=== PATIENT | female | born 1975 | race Caucasian/White ===

== ENCOUNTER 2024-01-07 16:18 | Emergency (ER) | payer OTHER ==
[~2024-01-07] VITALS: Ht 157.5 cm; Wt 78.0 kg
[~2024-01-07 16:18] MED LIST: ATORVASTATIN CA40 MG PO; BUSPAR10 MG PO; D31000 UNIT PO; DESYREL50 MG PO; DILAUDID2 MG PO; INDERAL 20MG TA20 MG PO; LAMOTRIGINE ER50 MG PO; LYRICA50 MG PO; NOVOLIN R100 UNIT/1 SC; OMEPRAZOLE DR40 MG PO; PRAZOSIN HCL5 MG PO; SINGULAIR10 MG PO; TIZANIDINE4 MG PO; TOPAMAX25 MG PO; VISTARIL 50MG C50 M1 PO; ZOLOFT50 MG PO
[2024-01-07 16:31] VITALS: BP 117/76
[2024-01-07 17:01] LABS: BASO% 0.5 % (0-3); EOS% 2.1 % (0-8); IMMATURE GRANULOCYTES 0.1 % (0.0-5.0); MEAN CELL VOLUME 94.4 fL CALC (80.0-100.0); MEAN CORPUSCULAR HGB 31.5 pG CALC (26.0-32.0); MEAN CORPUSCULAR HGB CONC 33.3 g/dL CAL (32.0-36.0); MONO% 5.4 % (2-13); NEUT# 4.26 thou/uL (2.00-7.15); NEUT% 54.9 % (42-76); RED BLOOD COUNT 4.13 mill/uL (4.20-5.60); RED CELL DISTRI WIDTH 11.7 % (11.5-15.5)
[2024-01-07] MEDS ORDERED: PROMETHAZINE HCL 25 MG/ML AMP IM ONE (17:10)
[2024-01-07 17:17] LABS: BILIRUBIN, TOTAL 0.3 mg/dL (0.02-1.3); CREATININE 0.6 mg/dL (0.5-1.0); TOTAL PROTEIN 7.6 g/dL (6.3-8.2)
[2024-01-07] MEDS ORDERED: SODIUM CHLORIDE 0.9% 1,000 ML IV ONE (19:45)
[2024-01-07] MEDS ORDERED: DEXTROSE 10% 500 ML BAG IV ONE (20:45)
[2024-01-07 22:00] VITALS: BP 110/60
[2024-01-07 22:16] LABS: URINE BILIRUBIN - DIPSTICK Negative (NEGATIVE); URINE BLOOD DIPSTICK Moderate (NEGATIVE); URINE GLUCOSE - DIPSTICK 500 mg/dL (NEGATIVE); URINE KETONE Negative (NEGATIVE); URINE LEUK ESTERASE Trace (NEGATIVE); URINE NITRITE - DIPSTICK Negative (Negative); URINE PH 5.5 (4.5-8.0); URINE PROTEIN - DIPSTICK Negative (NEG-TRACE); URINE SPECIFIC GRAVITY <=1.005; URINE UROBILINOGEN - DIPSTICK 0.2 E.U./dL (0.2)
[2024-01-07 22:21] LABS: URINE COLOR Yellow
[2024-01-07 22:25] LABS: URINE SQUAMOUS EPITHELIAL CELL FEW EPI/hpf (0-FEW)
[2024-01-07 22:26] LABS: URINE BACTERIA RARE hpf
[2024-01-08] MEDS ORDERED: OMNICEF300 MG PO (18:35)
== END 2024-01-07 23:01 | disposition home or self-care (01) | DRG 761 ==
LOC: ED 16:18
PROVIDERS: Family Medicine
DX: N93.9 Abnormal uterine and vaginal bleeding, unspecified (principal); E11.9 Type 2 diabetes mellitus without complications; M79.7 Fibromyalgia; F31.9 Bipolar disorder, unspecified; F41.1 Generalized anxiety disorder; Z79.4 Long term (current) use of insulin; R82.71 Bacteriuria
CPT/HCPCS: Q9967

== ENCOUNTER 2024-01-08 17:10 | Emergency (ER) | payer OTHER ==
[2024-01-08] VITALS (11 sets, daily range): BP systolic 124–147; BP diastolic 73–102
[~2024-01-08] VITALS: Ht 160 cm; Wt 78.5 kg
[2024-01-08] MEDS ORDERED: SODIUM CHLORIDE 0.9% 1,000 ML IV ONE (17:30)
[2024-01-08] MEDS ORDERED: KETOROLAC TROMETHAMINE 30 MG/ML SDV IV ONE (17:30)
[2024-01-08 18:06] LABS: BASO% 0.5 % (0-3); EOS% 1.6 % (0-8); HEMOGLOBIN 12.9 g/dl (12.0-16.0); IMMATURE GRANULOCYTES 0.5 % (0.0-5.0); LYMPH% 37.4 % (15-41); MEAN CELL VOLUME 93.6 fL CALC (80.0-100.0); MEAN CORPUSCULAR HGB 31.8 pG CALC (26.0-32.0); MEAN CORPUSCULAR HGB CONC 33.9 g/dL CAL (32.0-36.0); MONO% 4.8 % (2-13); NEUT# 4.76 thou/uL (2.00-7.15); NEUT% 55.2 % (42-76); RED BLOOD COUNT 4.06 mill/uL (4.20-5.60); RED CELL DISTRI WIDTH 11.8 % (11.5-15.5); URINE BILIRUBIN - DIPSTICK Negative (NEGATIVE); URINE BLOOD DIPSTICK Moderate (NEGATIVE); URINE GLUCOSE - DIPSTICK Negative (NEGATIVE); URINE KETONE Negative (NEGATIVE); URINE NITRITE - DIPSTICK Negative (Negative); URINE PH 5.5 (4.5-8.0); URINE PROTEIN - DIPSTICK Negative (NEG-TRACE); URINE SPECIFIC GRAVITY >=1.030; URINE UROBILINOGEN - DIPSTICK 0.2 E.U./dL (0.2)
[2024-01-08 18:08] LABS: URINE COLOR Yellow; URINE LEUK ESTERASE Moderate (NEGATIVE)
[2024-01-08 18:13] LABS: URINE WBC 50-100 WBC/hpf (0-5)
[2024-01-08 18:14] LABS: ALBUMIN 4.1 g/dL (3.2-5.0); BILIRUBIN, TOTAL 0.3 mg/dL (0.02-1.3); CREATININE 0.6 mg/dL (0.5-1.0); POTASSIUM 3.8 mmol/l (3.5-5.1); TOTAL PROTEIN 7.8 g/dL (6.3-8.2); URINE SQUAMOUS EPITHELIAL CELL FEW EPI/hpf (0-FEW)
[2024-01-08] MEDS ORDERED: LIDOcaine HCl 1% (Local Anesth.) 20 ML VIAL IM STA (18:31)
[2024-01-08] MEDS ORDERED: cefTRIAXone SODIUM 2 GM/VIAL SDV IM ONE (18:35)
[2024-01-08] MEDS ORDERED: MORPHINE SULFATE 4 MG/ML VIAL IV ONE (18:35)
[2024-01-08] MEDS ORDERED: OMNICEF300 MG PO (18:35)
[2024-01-08] MEDS ORDERED: PROMETHAZINE HCL 25 MG/ML AMP IM ONE (18:35)
== END 2024-01-08 19:46 | disposition home or self-care (01) | DRG 690 ==
LOC: ED 17:10
PROVIDERS: Family Medicine
DX: N39.0 Urinary tract infection, site not specified (principal); R31.9 Hematuria, unspecified; E11.9 Type 2 diabetes mellitus without complications; F41.1 Generalized anxiety disorder; F31.9 Bipolar disorder, unspecified; Z79.4 Long term (current) use of insulin

== ENCOUNTER 2024-02-02 15:33 | Observation (INO) | payer OTHER ==
[2024-02-02] VITALS (24 sets, daily range): BP systolic 97–150; BP diastolic 52–86
[~2024-02-02] VITALS: Ht 160 cm; Wt 86.4 kg
[~2024-02-02 15:33] MED LIST changes: +OMNICEF300 MG PO
--- NOTE | 2024-02-02 15:34 | NUR ---
PT BROUGHT BACK TO ER ROOM 1 VIA EMS
[2024-02-02] MEDS ORDERED: ASPIRIN 81 MG/TAB PO ONE (15:35)
[2024-02-02] MEDS ORDERED: NITROGLYCERIN 0.4 MG/TAB SL ONE (15:45)
--- NOTE | 2024-02-02 16:20 | NUR ---
PER PT CHEST PAIN IS THE SAME, NO RELEIF AFTER THE NITRO
[2024-02-02] MEDS ORDERED: METOPROLOL TARTRATE 5 MG/5 ML VIAL IV ONE (16:55)
[2024-02-02] MEDS ORDERED: PROMETHAZINE HCL 25 MG/ML AMP IV ONE (17:00)
[2024-02-02 17:10] LABS: BASO% 0.2 % (0-3); EOS% 0.3 % (0-8); HEMATOCRIT 37.7 % (37.0-47.0); HEMOGLOBIN 12.8 g/dl (12.0-16.0); IMMATURE GRANULOCYTES 0.1 % (0.0-5.0); LYMPH% 12.6 % (15-41); MEAN CORPUSCULAR HGB 31.2 pG CALC (26.0-32.0); MONO% 4.2 % (2-13); NEUT# 7.68 thou/uL (2.00-7.15); NEUT% 82.6 % (42-76); RED BLOOD COUNT 4.1 mill/uL (4.20-5.60); RED CELL DISTRI WIDTH 11.9 % (11.5-15.5)
--- NOTE | 2024-02-02 17:15 | NUR ---
PT MEDICATED PER EMAR FOR NAUSEA AND RAPID HR, PT RESTING IN BED, DENIES ANY NEEDS
[2024-02-02 17:20] LABS: ALBUMIN 4.2 g/dL (3.2-5.0); ALKALINE PHOSPHATASE 80 u/l (38-126); ANION GAP 10 (6-22 (CALC)); BUN 10 mg/dL (7-17); BUN/CREATININE RATIO 17 (12-20 (CALC)); CARBON DIOXIDE 26 mmol/l (22-30); CHLORIDE 106 mmol/l (95-108); CREATININE 0.6 mg/dL (0.5-1.0); ESTIMATED GFR 112 ML/MIN (>=90 (CALC)); LIPASE 41 u/l (23-300); POTASSIUM 4.2 mmol/l (3.5-5.1); SGOT/AST 21 u/l (14-36); SODIUM 137 mmol/l (137-146); TOTAL PROTEIN 7.6 g/dL (6.3-8.2)
[2024-02-02 17:32] LABS: BILIRUBIN, TOTAL 0.6 mg/dL (0.02-1.3)
--- NOTE | 2024-02-02 18:15 | NUR ---
PT RESTING IN BED, PER PT THE PAIN IS BACK TO A 9/10, VSS, PROVIDER NOTIFIED
--- NOTE | 2024-02-02 19:05 | NUR ---
REPORT RECEIVED FROM OFF GOING RN PT RESTING IN BED WAKE, VSS, CALL ALFONSO WITHIN REACH
[2024-02-02] MEDS ORDERED: MORPHINE SULFATE 4 MG/ML VIAL IV ONE (19:15)
[2024-02-02] MEDS ORDERED: ACETAMINOPHEN 325 MG/TAB PO ONE (19:15)
[2024-02-02] MEDS ORDERED: METOCLOPRAMIDE HCL 10 MG/2 ML SDV IV ONE (19:35)
--- NOTE | 2024-02-02 20:00 | NUR ---
PT RESTING IN BED, MEDICATIONS EFFECTIVE, VSS, CALL ALFONSO IN PLACE
[2024-02-02] MEDS ORDERED: MAGNESIUM HYDROXIDE 30 ML UDC PO PRN (20:15)
[2024-02-02] MEDS ORDERED: Zaleplon 5 MG/CAP PO PRN (20:15)
[2024-02-02] MEDS ORDERED: ENOXAPARIN SODIUM 40 MG/0.4 ML SYR SC SCH (21:00)
--- NOTE | 2024-02-02 21:25 | NUR ---
REPORT TO [facility] NURSE RM [id number]
[2024-02-02] MEDS ORDERED: PREGABALIN50 MG (21:55)
[2024-02-02] MEDS ORDERED: TOPIRAMATE25 MG PO (22:45)
[2024-02-02] MEDS ORDERED: ATORVASTATIN CALCIUM 40 MG/TAB PO SCH (22:46)
[2024-02-02] MEDS ORDERED: traZODone HCL 50 MG/TAB PO SCH (22:47)
[2024-02-02] MEDS ORDERED: MONTELUKAST SODIUM 10 MG/TAB PO SCH (22:47)
[2024-02-02] MEDS ORDERED: hydrOXYzine HCL 25 MG/TAB PO SCH (22:48)
[2024-02-02] MEDS ORDERED: ASPIRIN ADULT L81 M2 (22:49)
[2024-02-02] MEDS ORDERED: PREGABALIN 50 MG/CAP PO SCH (22:49)
[2024-02-02] MEDS ORDERED: CYCLOBENZAPRINE HCL 5 MG TAB PO PRN (22:50)
[2024-02-02] MEDS ORDERED: [UNRECOGNIZED DRUG - REMARK] PO PRN (22:50)
[2024-02-02] MEDS ORDERED: lamoTRIgine 100 MG/TAB PO SCH (22:52)
[2024-02-02] MEDS ORDERED: [UNRECOGNIZED DRUG - REMARK] PO PRN (22:55)
[2024-02-02] MEDS ORDERED: TOPIRAMATE 25 MG TAB PO SCH (22:55)
[2024-02-02] MEDS ORDERED: ARIPiprazole 10 MG/TAB PO SCH (22:59)
[2024-02-02] MEDS ORDERED: HYDROmorphone HCL 2 MG/TAB PO PRN (23:05)
[2024-02-02] MEDS ORDERED: SERTRALINE HCL 50 MG/TAB PO SCH (23:05)
[2024-02-03] VITALS (8 sets, daily range): BP systolic 101–127; BP diastolic 61–79
--- NOTE | 2024-02-03 | NUR ---
RECEIVED REPORT FROM ED NURSE, PATIENT ARRIVED MS ORO T 2142, TRANSPORTED VIA WHEELCHAIR, NIECYNET ALERT ORIENTED, SALINE LOCK LAC PATENT FLUSHES WELL, HOOKED ON TELEMETRY, ADMISSION ASSESSMENT COMPLETED DENIES CHEST DISCOMFORTS AT THIS TIME,ANDRES ORINETED TO ROOMAND CALL LIGHT SYSTEM, CALL LIGHT IN REACHED.
--- NOTE | 2024-02-03 04:14 | NUR ---
ANDRES RESTING IN BED, EYES CLOSED, BREATHING EVEN UNLABORED CALL LIGHT IN REACHED,
[2024-02-03] MEDS ORDERED: PROMETHAZINE HCL 25 MG/ML AMP IV SCH (06:20)
[2024-02-03 06:33] LABS: CHOLESTEROL HDL RATIO 4.4 (<4.4 (CALC)); MAGNESIUM 1.5 mg/dL (1.6-2.3)
--- NOTE | 2024-02-03 06:36 | NUR ---
Asked pt if I can get Glucose @0600. Pt stated she has an inslulin pump and to not poke her. Notified Daniel Olivia @0605. Nurse said it was ok to use pump reading which was 113.
--- NOTE | 2024-02-03 08:06 | NUR ---
BEDSIDE REPORT RECEIVED FROMOFF GOING NURSE. PATIENT ASLEEP IN BED. AORUSABLE BUT DROWSY. RESPIRATIONS EVEN AND UNLABORED ON ROOM AIR. C/O CHEST PAIN AND "FULLNESS IN MY HEAD". PATIENT STATES THAT THIS FEELING IS NOT NEW. PATIENT STATES THAT CHEST PAIN DOES NOT RADIATE AND HAS NOT WORSENED SINCE ADMISSION. NO FURTHER COMPLAINTS VOICED. PATIENT MADE AWARE THAT THE DOCOT IS ROUNDING AND WILL SEE HER THIS MORNING. SAFETY MEASURES INPLACE. CALL LIGHT WITHIN REACH.
[2024-02-03] MEDS ORDERED: PROPRANOLOL HCL 20 MG/TAB PO SCH (09:00)
[2024-02-03] MEDS ORDERED: ASPIRIN 81 MG/TAB PO SCH (09:00)
[2024-02-03] MEDS ORDERED: DEXTROSE 250 ML IV PRN (10:20)
[2024-02-03] MEDS ORDERED: AZITHROMYCIN 500 MG in SODIUM CHLORIDE 0.9% 250 ML IV SCH (11:00)
[2024-02-03] MEDS ORDERED: INSULIN LISPRO 100 UNITS/ML ML SC SCH (11:00)
--- NOTE | 2024-02-03 11:21 | NUR ---
PATIENT ASLEEP IN BED AT THIS TIME. RESPIRATIONS EVEN AND UNLABORED ON ROOM AIR. PATIENT EASILY AROUSED BUT CONTINUES TO BE SLEEPY WHEN NOT AROUSED. DENIES PAIN OR DISCOMFORT. MEDICATION EDUATION COMPLETE FOR IV ABT. SAFETY MEASURES INPLACE. CALL LIGHT WITHIN REACH.
--- NOTE | 2024-02-03 14:09 | NUR ---
PATIENT ASLEEP IN BED AT THIS TIME. RESPIRATIONS EVEN AND UNLABORED ON ROOM AIR. NO SIGNS OF DISTRESS NOTED. CALL LIGHT WITHIN REACH.
--- NOTE | 2024-02-03 18:36 | NUR ---
PATIENT RESTING IN BED AT THIS TIME. NO SIGNS OF DISTRESS NOTED. CALL LIGHT WITHIN REACH.
--- NOTE | 2024-02-03 20:00 | NUR ---
RECEIVED REPORT FROM NURSE ACEVEDO, PATIENT RESTING IN BED, PATIENT TALKING ON THE PHONE, APTINET NOT IN DISTRESS. PATIENT SALINE LOCK NOTED ON LAC PATENT FLUSHES WELL, ON TELEMETRY PATIENT HAS AN GLUCOSE MONITOR AND INSULIN PUMP REFUSED TO GET BLOOD SUGAR CHECKED, HER GLUCOSE MONITOR SHOWS 232, PATIENT C/O DRY COUGH, AND FEELS NASAL CONGESTION. NURSE PRACTIONER MADE AWARE WITH ORDERS MADE.
[2024-02-03] MEDS ORDERED: IPRATROPIUM-Albuterol 0.5MG-2.5MG/3 ML NEB PRN (20:30)
[2024-02-03] MEDS ORDERED: PROMETHAZINE HCL 25 MG/ML AMP IV PRN (20:30)
[2024-02-03] MEDS ORDERED: SERTRALINE HCL 50 MG/TAB PO SCH (21:00)
[2024-02-03] MEDS ORDERED: GUAIFENESIN 600 MG/TAB PO SCH (21:00)
[2024-02-03] MEDS ORDERED: TOPIRAMATE 25 MG TAB PO SCH (21:00)
--- NOTE | 2024-02-03 22:15 | NUR ---
AT 2141, PATIENT C/O PAIN SHARP RADIATES ON LEFT LATERAL NECK. V/S OBTAINED BP 112/79 HR 88 SPO2 AT 93% TEMP 98.1, STAT EKG OBTAINED AND STAT TROPONIN, ON JENIFFER NURSE PRACTITIONER MADE AWARE. BS AT 98 AT THIUS TIME, GETTING SNACK
--- NOTE | 2024-02-03 22:20 | NUR ---
ANDRES STATED FEELS MUCH BETTER, CP EASING UP, TROPONINS OBTAINED.
--- NOTE | 2024-02-04 | NUR ---
PATINET RESTING IN BED,NOT IN DISTRESS, BRAETHING EVEN UNLABORED CALL LIGHT IN REACHED.
[2024-02-04 03:41] VITALS: BP 127/80
--- NOTE | 2024-02-04 04:28 | NUR ---
PATIENT RESTING IN BED, EYES CLSOED, BREATHING EVEN UNLABORED CALL LIGHT IN REACHED.
[2024-02-04 06:16] LABS: BASO% 0.5 % (0-3); EOS% 0.7 % (0-8); HEMOGLOBIN 11.8 g/dl (12.0-16.0); IMMATURE GRANULOCYTES 0.1 % (0.0-5.0); LYMPH% 24.6 % (15-41); MEAN CELL VOLUME 94.3 fL CALC (80.0-100.0); MEAN CORPUSCULAR HGB 31.8 pG CALC (26.0-32.0); MEAN CORPUSCULAR HGB CONC 33.7 g/dL CAL (32.0-36.0); MONO% 7.8 % (2-13); NEUT# 5.6 thou/uL (2.00-7.15); NEUT% 66.3 % (42-76); RED BLOOD COUNT 3.71 mill/uL (4.20-5.60); RED CELL DISTRI WIDTH 11.9 % (11.5-15.5)
[2024-02-04 06:34] LABS: ALBUMIN 3.7 g/dL (3.2-5.0); BILIRUBIN, TOTAL 0.6 mg/dL (0.02-1.3); CREATININE 0.6 mg/dL (0.5-1.0); MAGNESIUM 1.8 mg/dL (1.6-2.3); POTASSIUM 3.8 mmol/l (3.5-5.1); TOTAL PROTEIN 6.5 g/dL (6.3-8.2)
[2024-02-04 07:19] VITALS: BP 129/73
[2024-02-04] MEDS ORDERED: DOXYCYCLINE100 MG PO (10:24)
[2024-02-04] MEDS ORDERED: PREDNISONE20 MG PO (10:24)
[2024-02-04 11:09] VITALS: BP 125/66
--- NOTE | 2024-02-08 11:09 | NUR ---
Discharge follow up piero completed 02/08/24. Pt states she is still sick and now has bronchial pneumonia. Pt is taking antibiotics prescribed at discharge. She saw her PCP yesterday and will see him again after completing antibiotics. No needs or questions verbalized by patient at this time..
== END 2024-02-04 12:57 | disposition home or self-care (01) | DRG 202 ==
LOC: ED 15:33 → ED-I 16:07 → ED 19:59 → MS2 20:00
PROVIDERS: Nurse Practitioner; Nurse Practitioner Family; ADMIT Internal Medicine; ATTEND Internal Medicine
DX: J20.9 Acute bronchitis, unspecified (principal); J44.0 Chronic obstructive pulmonary disease with (acute) lower respiratory infection; U09.9 Post COVID-19 condition, unspecified; I10 Essential (primary) hypertension; E11.9 Type 2 diabetes mellitus without complications; I48.0 Paroxysmal atrial fibrillation; E78.5 Hyperlipidemia, unspecified; F41.1 Generalized anxiety disorder; F31.9 Bipolar disorder, unspecified; Z79.4 Long term (current) use of insulin; Z88.8 Allergy status to other drugs, medicaments and biological substances; Z96.41 Presence of insulin pump (external) (internal); Z20.822 Contact with and (suspected) exposure to COVID-19
CPT/HCPCS: G0378; J1650

== ENCOUNTER 2024-02-14 17:06 | Emergency (ER) | payer OTHER ==
[2024-02-14] VITALS (15 sets, daily range): BP systolic 117–144; BP diastolic 48–77
[~2024-02-14] VITALS: Ht 160 cm; Wt 77.1 kg
[~2024-02-14 17:06] MED LIST changes: +ASPIRIN ADULT L81 M2; +DOXYCYCLINE100 MG PO; +PREDNISONE20 MG PO; +PREGABALIN50 MG; +TOPIRAMATE25 MG PO
[2024-02-14] MEDS ORDERED: PROMETHAZINE HCL 25 MG/ML AMP IM ONE (17:30)
[2024-02-14] MEDS ORDERED: SODIUM CHLORIDE 0.9% 1,000 ML IV ONE ×2 (17:30)
[2024-02-14 17:53] LABS: BASO% 0.3 % (0-3); EOS% 1.8 % (0-8); HEMATOCRIT 35.2 % (37.0-47.0); HEMOGLOBIN 11.6 g/dl (12.0-16.0); IMMATURE GRANULOCYTES 0.2 % (0.0-5.0); LYMPH% 35.5 % (15-41); MEAN CELL VOLUME 93.6 fL CALC (80.0-100.0); MEAN CORPUSCULAR HGB 30.9 pG CALC (26.0-32.0); MONO% 5.1 % (2-13); NEUT# 5.53 thou/uL (2.00-7.15); NEUT% 57.1 % (42-76); RED BLOOD COUNT 3.76 mill/uL (4.20-5.60)
[2024-02-14 18:06] LABS: ALBUMIN 3.8 g/dL (3.2-5.0); BILIRUBIN, TOTAL 0.4 mg/dL (0.02-1.3); CREATININE 0.6 mg/dL (0.5-1.0); TOTAL PROTEIN 6.8 g/dL (6.3-8.2)
[2024-02-14] MEDS ORDERED: ASPIRIN 81 MG/TAB PO ONE (18:55)
== END 2024-02-14 21:00 | disposition home or self-care (01) | DRG 313 ==
LOC: ED 17:06
PROVIDERS: Family Medicine
DX: R07.9 Chest pain, unspecified (principal); E11.9 Type 2 diabetes mellitus without complications; I10 Essential (primary) hypertension; E78.5 Hyperlipidemia, unspecified; F41.1 Generalized anxiety disorder; F31.9 Bipolar disorder, unspecified; M79.7 Fibromyalgia; Z79.4 Long term (current) use of insulin

== ENCOUNTER 2024-03-03 15:26 | Emergency (ER) | payer OTHER ==
[~2024-03-03] VITALS: Ht 160 cm; Wt 83.0 kg
[2024-03-03] MEDS ORDERED: DiphenhydrAMINE HCL 50 MG/ML SDV IV ONE (15:35)
[2024-03-03] MEDS ORDERED: SODIUM CHLORIDE 0.45% 1,000 ML IV ONE (15:35)
[2024-03-03] MEDS ORDERED: METOCLOPRAMIDE HCL 10 MG/2 ML SDV IV ONE (15:35)
[2024-03-03] MEDS ORDERED: DEXAMETHASONE SOD. PHOSPHATE 10 MG/ML VIAL IV ONE (15:35)
[2024-03-03] MEDS ORDERED: ALBUTEROL SULFATE 2.5 MG VIAL IN ONE (15:35)
[2024-03-03] MEDS ORDERED: DECADRON4 MG PO (15:45)
[2024-03-03] MEDS ORDERED: EPIPEN 2-P0.3 MG/0.3 IM (15:45)
[2024-03-03] MEDS ORDERED: REGLAN10 MG PO (15:46)
[2024-03-03 16:44] VITALS: BP 109/68
== END 2024-03-03 17:00 | disposition home or self-care (01) | DRG 918 ==
LOC: ED 15:26
DX: T63.461A Toxic effect of venom of wasps, accidental (unintentional), initial encounter (principal); T78.2XXA Anaphylactic shock, unspecified, initial encounter; E11.9 Type 2 diabetes mellitus without complications; X58.XXXA Exposure to other specified factors, initial encounter

== ENCOUNTER 2024-04-03 20:20 | Emergency (ER) | payer OTHER ==
[~2024-04-03] VITALS: Ht 160 cm; Wt 73.0 kg
[~2024-04-03 20:20] MED LIST changes: +DECADRON4 MG PO; +EPIPEN 2-P0.3 MG/0.3 IM; +REGLAN10 MG PO
[2024-04-03] MEDS ORDERED: FAMOTIDINE 10MG/ML 2ML SDV IV STA (20:26)
[2024-04-03] MEDS ORDERED: methylPREDNISolone SODIUM SUCC 125 MG/2 ML SDV IV STA (20:26)
[2024-04-03] MEDS ORDERED: DiphenhydrAMINE HCL 50 MG/ML SDV IV STA (20:26)
[2024-04-03 20:28] VITALS: BP 149/74
[2024-04-03 20:31] VITALS: BP 133/73
[2024-04-03] MEDS ORDERED: DiphenhydrAMINE HCL 25 MG CPLT PO ONE (20:35)
[2024-04-03 20:46] VITALS: BP 128/65
[2024-04-03 21:00] VITALS: BP 149/76
[2024-04-03 21:18] VITALS: BP 159/71
[2024-04-03] MEDS ORDERED: predniSONE 20 MG/TAB PO ONE (21:20)
[2024-04-03] MEDS ORDERED: PREDNISONE50 MG PO (21:21)
[2024-04-03] MEDS ORDERED: EPIPEN 2-P0.3 MG/0.3 SC (21:21)
[2024-04-03 21:35] VITALS: BP 159/71
== END 2024-04-03 21:35 | disposition home or self-care (01) | DRG 918 ==
LOC: ED 20:20
DX: T63.461A Toxic effect of venom of wasps, accidental (unintentional), initial encounter (principal); E11.9 Type 2 diabetes mellitus without complications; I10 Essential (primary) hypertension; E78.00 Pure hypercholesterolemia, unspecified; F41.1 Generalized anxiety disorder; F31.9 Bipolar disorder, unspecified; Z79.4 Long term (current) use of insulin

== ENCOUNTER 2024-04-18 08:51 | Observation (INO) | payer OTHER ==
[~2024-04-18] VITALS: Ht 160 cm; Wt 66.6 kg
[2024-04-18] VITALS (33 sets, daily range): BP systolic 84–153; BP diastolic 42–89
[~2024-04-18 08:51] MED LIST changes: +EPIPEN 2-P0.3 MG/0.3 SC; +PREDNISONE50 MG PO
[2024-04-18 09:24] LABS: BASO% 0.2 % (0-3); EOS% 1.9 % (0-8); HEMATOCRIT 39.6 % (37.0-47.0); HEMOGLOBIN 12.8 g/dl (12.0-16.0); IMMATURE GRANULOCYTES 0.1 % (0.0-5.0); LYMPH% 34.1 % (15-41); MEAN CELL VOLUME 96.1 fL CALC (80.0-100.0); MEAN CORPUSCULAR HGB 31.1 pG CALC (26.0-32.0); MEAN CORPUSCULAR HGB CONC 32.3 g/dL CAL (32.0-36.0); MONO% 4.4 % (2-13); NEUT# 4.9 thou/uL (2.00-7.15); NEUT% 59.3 % (42-76); RED BLOOD COUNT 4.12 mill/uL (4.20-5.60); RED CELL DISTRI WIDTH 12.6 % (11.5-15.5)
[2024-04-18 09:36] LABS: PROTHROMBIN TIME 9.9 SECONDS (9.0-12.5)
[2024-04-18 09:37] LABS: ALBUMIN 4.1 g/dL (3.2-5.0); ALKALINE PHOSPHATASE 91 u/l (38-126); ANION GAP 7 (6-22 (CALC)); BUN 15 mg/dL (7-17); BUN/CREATININE RATIO 29 (12-20 (CALC)); CALCULATED LDLCHOLESTEROL 93 mg/dL (62-129 (CALC)); CARBON DIOXIDE 27 mmol/l (22-30); CHLORIDE 106 mmol/l (95-108); CHOLESTEROL HDL RATIO 3.6 (<4.4 (CALC)); CREATININE 0.5 mg/dL (0.5-1.0); ESTIMATED GFR 117 ML/MIN (>=90 (CALC)); HDL CHOLESTEROL 63 mg/dL (39.0-59.0); POTASSIUM 4.6 mmol/l (3.5-5.1); SGOT/AST 23 u/l (14-36); SODIUM 135 mmol/l (137-146); TOTAL CHOLESTEROL 224 mg/dl (0-199); TOTAL PROTEIN 7.1 g/dL (6.3-8.2); TOTAL TRIGLYCERIDES 342 mg/dl (0-149); VLDL CHOLESTROL 68 mg/dl (1-41 (CALC))
[2024-04-18 09:46] LABS: BILIRUBIN, TOTAL 0.8 mg/dL (0.02-1.3)
[2024-04-18] MEDS ORDERED: ASPIRIN 81 MG/TAB PO ONE (09:55)
[2024-04-18 10:33] LABS: URINE BILIRUBIN - DIPSTICK Negative (NEGATIVE); URINE BLOOD DIPSTICK Negative (NEGATIVE); URINE GLUCOSE - DIPSTICK Negative (NEGATIVE); URINE KETONE Negative (NEGATIVE); URINE LEUK ESTERASE Negative (NEGATIVE); URINE NITRITE - DIPSTICK Negative (Negative); URINE PH 5.5 (4.5-8.0); URINE PROTEIN - DIPSTICK Negative (NEG-TRACE); URINE SPECIFIC GRAVITY 1.015; URINE UROBILINOGEN - DIPSTICK 0.2 E.U./dL (0.2)
[2024-04-18 10:39] LABS: URINE COLOR Yellow
[2024-04-18] MEDS ORDERED: PROMETHAZINE HCL 25 MG/ML AMP IM ONE (10:40)
[2024-04-18] MEDS ORDERED: MORPHINE SULFATE 4 MG/ML VIAL IV ONE (11:25)
[2024-04-18] MEDS ORDERED: DEXTROSE 250 ML IV PRN (12:10)
[2024-04-18] MEDS ORDERED: MAGNESIUM HYDROXIDE 30 ML UDC PO PRN (12:10)
[2024-04-18] MEDS ORDERED: busPIRone HCL 5 MG/TAB PO SCH (13:00)
[2024-04-18] MEDS ORDERED: MONTELUKAST SODIUM 10 MG/TAB PO SCH (14:00)
[2024-04-18] MEDS ORDERED: PROPRANOLOL HCL 20 MG/TAB PO SCH (14:00)
[2024-04-18] MEDS ORDERED: INSULIN LISPRO 100 UNITS/ML ML SC SCH (17:00)
[2024-04-18] MEDS ORDERED: ATORVASTATIN CALCIUM 40 MG/TAB PO SCH (21:00)
[2024-04-18] MEDS ORDERED: TOPIRAMATE 25 MG TAB PO SCH ×2 (21:00)
[2024-04-18] MEDS ORDERED: PREGABALIN 50 MG/CAP PO SCH (21:00)
[2024-04-18] MEDS ORDERED: SERTRALINE HCL 50 MG/TAB PO SCH (21:00)
[2024-04-18] MEDS ORDERED: ENOXAPARIN SODIUM 40 MG/0.4 ML SYR SC SCH (21:00)
[2024-04-18] MEDS ORDERED: traZODone HCL 50 MG/TAB PO SCH (21:00)
[2024-04-19] VITALS (10 sets, daily range): BP systolic 96–128; BP diastolic 50–80
[2024-04-19 05:04] LABS: BASO% 0.4 % (0-3); EOS% 2.1 % (0-8); HEMATOCRIT 39.3 % (37.0-47.0); HEMOGLOBIN 12.8 g/dl (12.0-16.0); MEAN CELL VOLUME 96.3 fL CALC (80.0-100.0); MEAN CORPUSCULAR HGB 31.4 pG CALC (26.0-32.0); MEAN CORPUSCULAR HGB CONC 32.6 g/dL CAL (32.0-36.0); MONO% 4.1 % (2-13); NEUT# 5.59 thou/uL (2.00-7.15); NEUT% 59.4 % (42-76); RED BLOOD COUNT 4.08 mill/uL (4.20-5.60); RED CELL DISTRI WIDTH 12.6 % (11.5-15.5)
[2024-04-19 05:23] LABS: BILIRUBIN, TOTAL 0.5 mg/dL (0.02-1.3); CREATININE 0.6 mg/dL (0.5-1.0); POTASSIUM 4.4 mmol/l (3.5-5.1); TOTAL PROTEIN 6.9 g/dL (6.3-8.2)
[2024-04-19] MEDS ORDERED: ASPIRIN EC 81 MG/TAB PO SCH (09:00)
[2024-04-19] MEDS ORDERED: PANTOPRAZOLE SODIUM Sesquihydr 40 MG/TAB PO SCH (09:00)
[2024-04-19] MEDS ORDERED: traZODone HCL 50 MG/TAB PO SCH (09:00)
== END 2024-04-19 10:35 | disposition home or self-care (01) | DRG 149 ==
LOC: ED 08:51 → ED-I 11:38 → ED 12:03 → ICU 12:04
PROVIDERS: Family Medicine; Nurse Practitioner Family; ADMIT Internal Medicine; ATTEND Internal Medicine
DX: R42 Dizziness and giddiness (principal); R51.9 Headache, unspecified; R47.81 Slurred speech; R29.810 Facial weakness; R53.1 Weakness; R07.9 Chest pain, unspecified; I10 Essential (primary) hypertension; E11.9 Type 2 diabetes mellitus without complications; E78.5 Hyperlipidemia, unspecified; M79.7 Fibromyalgia; E66.9 Obesity, unspecified; F43.10 Post-traumatic stress disorder, unspecified; F41.1 Generalized anxiety disorder; F31.9 Bipolar disorder, unspecified; I25.2 Old myocardial infarction; Z79.4 Long term (current) use of insulin; Z96.41 Presence of insulin pump (external) (internal)
CPT/HCPCS: J1650; J1815; Q9967

== ENCOUNTER 2024-04-23 13:47 | Emergency (ER) | payer OTHER ==
[~2024-04-23] VITALS: Ht 160 cm; Wt 87.5 kg
[2024-04-23] VITALS (13 sets, daily range): BP systolic 114–140; BP diastolic 55–77
[2024-04-23] MEDS ORDERED: methylPREDNISolone SODIUM SUCC 125 MG/2 ML SDV IV ONE (14:00)
[2024-04-23] MEDS ORDERED: EPINEPHrine HCL 1 MG/ML AMP IM ONE (14:00)
[2024-04-23] MEDS ORDERED: DiphenhydrAMINE HCL 50 MG/ML SDV IV ONE (14:00)
[2024-04-23] MEDS ORDERED: FAMOTIDINE 10MG/ML 2ML SDV IV ONE (14:00)
[2024-04-23] MEDS ORDERED: SODIUM CHLORIDE 0.9% 1,000 ML IV ONE (14:05)
[2024-04-23] MEDS ORDERED: PROMETHAZINE HCL 25 MG/ML AMP IM ONE (14:10)
[2024-04-23 14:15] LABS: BASO% 0.4 % (0-3); EOS% 2.1 % (0-8); HEMATOCRIT 38.1 % (37.0-47.0); HEMOGLOBIN 12.7 g/dl (12.0-16.0); IMMATURE GRANULOCYTES 0.2 % (0.0-5.0); LYMPH% 32.2 % (15-41); MEAN CELL VOLUME 94.5 fL CALC (80.0-100.0); MEAN CORPUSCULAR HGB 31.5 pG CALC (26.0-32.0); MEAN CORPUSCULAR HGB CONC 33.3 g/dL CAL (32.0-36.0); MONO% 4.1 % (2-13); NEUT# 5.68 thou/uL (2.00-7.15); RED BLOOD COUNT 4.03 mill/uL (4.20-5.60); RED CELL DISTRI WIDTH 12.7 % (11.5-15.5)
[2024-04-23 14:27] LABS: ALBUMIN 4.3 g/dL (3.2-5.0); CREATININE 0.6 mg/dL (0.5-1.0); POTASSIUM 4.3 mmol/l (3.5-5.1); TOTAL PROTEIN 7.4 g/dL (6.3-8.2)
[2024-04-23 14:28] LABS: BILIRUBIN, TOTAL 0.8 mg/dL (0.02-1.3)
[2024-04-23] MEDS ORDERED: PREDNISONE50 MG PO (18:13)
[2024-04-23] MEDS ORDERED: ALL DAY10 MG PO (18:13)
== END 2024-04-23 19:48 | disposition home or self-care (01) | DRG 918 ==
LOC: ED 13:47
PROVIDERS: Family Medicine
DX: T63.481A Toxic effect of venom of other arthropod, accidental (unintentional), initial encounter (principal); T78.2XXA Anaphylactic shock, unspecified, initial encounter; I10 Essential (primary) hypertension; E11.9 Type 2 diabetes mellitus without complications; F41.1 Generalized anxiety disorder; F31.9 Bipolar disorder, unspecified; Z79.4 Long term (current) use of insulin

== ENCOUNTER 2024-07-09 20:44 | Emergency (ER) | payer OTHER ==
[~2024-07-09] VITALS: Ht 160 cm; Wt 95.0 kg
[2024-07-09] VITALS (10 sets, daily range): BP systolic 109–145; BP diastolic 48–80
[~2024-07-09 20:44] MED LIST changes: +ALL DAY10 MG PO
[2024-07-09] MEDS ORDERED: EPINEPHrine HCL 1 MG/ML AMP IM ONE (20:50)
[2024-07-09] MEDS ORDERED: DEXAMETHASONE SOD. PHOSPHATE 10 MG/ML VIAL IM ONE (20:50)
[2024-07-09] MEDS ORDERED: DiphenhydrAMINE HCL 50 MG/ML SDV IM ONE (20:50)
[2024-07-09] MEDS ORDERED: MAGNESIUM SULFATE 50% 1 GM/2 ML IV ONE (21:05)
[2024-07-09] MEDS ORDERED: MAGNESIUM SULFATE HEPTAHYDRATE 50 ML IV ONE (21:15)
[2024-07-09 21:44] LABS: BASO% 0.4 % (0-3); EOS% 1.9 % (0-8); HEMOGLOBIN 12.3 g/dl (12.0-16.0); IMMATURE GRANULOCYTES 0.1 % (0.0-5.0); MEAN CELL VOLUME 92.3 fL CALC (80.0-100.0); MEAN CORPUSCULAR HGB 31.5 pG CALC (26.0-32.0); MEAN CORPUSCULAR HGB CONC 34.2 g/dL CAL (32.0-36.0); MONO% 4.7 % (2-13); NEUT# 3.65 thou/uL (2.00-7.15); NEUT% 45.9 % (42-76); RED BLOOD COUNT 3.9 mill/uL (4.20-5.60); RED CELL DISTRI WIDTH 12.2 % (11.5-15.5)
[2024-07-09 22:02] LABS: BILIRUBIN, TOTAL 0.5 mg/dL (0.02-1.3); CREATININE 0.6 mg/dL (0.5-1.0); TOTAL PROTEIN 6.6 g/dL (6.3-8.2)
[2024-07-09 22:09] LABS: POTASSIUM 3.8 mmol/l (3.5-5.1)
[2024-07-09] MEDS ORDERED: INSULIN REGULAR (HUMAN) 100 UNIT/ML INJ SC ONE (22:25)
[2024-07-09] MEDS ORDERED: DECADRON4 MG PO (23:19)
[2024-07-09] MEDS ORDERED: ALBUTEROL SULFATE 8 GM INH IN ONE (23:20)
== END 2024-07-09 23:28 | disposition home or self-care (01) | DRG 918 ==
LOC: ED 20:44
PROVIDERS: Family Medicine
DX: T63.481A Toxic effect of venom of other arthropod, accidental (unintentional), initial encounter (principal); T78.2XXA Anaphylactic shock, unspecified, initial encounter
CPT/HCPCS: J1100; J1200; J3475

== ENCOUNTER 2024-08-17 21:31 | Emergency (ER) | payer OTHER ==
[~2024-08-17] VITALS: Ht 160 cm; Wt 65.0 kg
[2024-08-17] MEDS ORDERED: ALBUTEROL SULFATE 2.5 MG VIAL NEB ONE (21:35)
[2024-08-17 21:36] VITALS: BP 150/80
[2024-08-17 21:45] VITALS: BP 153/107
[2024-08-17 22:00] VITALS: BP 134/60
[2024-08-17 22:15] VITALS: BP 127/64
[2024-08-17] MEDS ORDERED: EPIPEN 2-P0.3 MG/0.3 IM (22:17)
[2024-08-17] MEDS ORDERED: BENADRYL25 M1 PO (22:18)
[2024-08-17] MEDS ORDERED: DIPHENHYDRAMINE HCL TOP ONE (22:35)
[2024-08-17] MEDS ORDERED: [UNRECOGNIZED DRUG - OTHER] TOP ONE (22:35)
[2024-08-17 22:54] VITALS: BP 127/64
== END 2024-08-17 23:00 | disposition home or self-care (01) | DRG 918 ==
LOC: ED 21:31
DX: T63.421A Toxic effect of venom of ants, accidental (unintentional), initial encounter (principal); T78.2XXA Anaphylactic shock, unspecified, initial encounter; X58.XXXA Exposure to other specified factors, initial encounter; I10 Essential (primary) hypertension; E11.9 Type 2 diabetes mellitus without complications; Z79.4 Long term (current) use of insulin
CPT/HCPCS: J1100

== ENCOUNTER 2024-08-26 19:01 | Emergency (ER) | payer OTHER ==
[~2024-08-26] VITALS: Ht 160 cm; Wt 85.0 kg
[~2024-08-26 19:01] MED LIST changes: +BENADRYL25 M1 PO
[2024-08-26] MEDS ORDERED: FLUCONAZOLE 150 MG/TAB PO ONE (19:35)
[2024-08-26] MEDS ORDERED: DIFLUCAN150 MG PO (19:39)
[2024-08-26 19:56] VITALS: BP 158/92
[2024-08-27] MEDS ORDERED: LANTUS SOL100 UNIT/M SC (20:23)
== END 2024-08-26 20:26 | disposition home or self-care (01) | DRG 607 ==
LOC: ED 19:01
DX: B35.6 Tinea cruris (principal); E11.9 Type 2 diabetes mellitus without complications; I10 Essential (primary) hypertension; F31.9 Bipolar disorder, unspecified; F41.1 Generalized anxiety disorder; Z79.4 Long term (current) use of insulin

== ENCOUNTER 2024-08-27 17:17 | Emergency (ER) | payer OTHER ==
[2024-08-27] VITALS (11 sets, daily range): BP systolic 100–157; BP diastolic 65–94
[~2024-08-27] VITALS: Ht 160 cm; Wt 90.7 kg
[~2024-08-27 17:17] MED LIST changes: +DIFLUCAN150 MG PO
[2024-08-27] MEDS ORDERED: methylPREDNISolone SODIUM SUCC 125 MG/2 ML SDV IV ONE (17:30)
[2024-08-27] MEDS ORDERED: DiphenhydrAMINE HCL 50 MG/ML SDV IV ONE (17:30)
[2024-08-27] MEDS ORDERED: FAMOTIDINE 10MG/ML 2ML SDV IV ONE (17:30)
[2024-08-27] MEDS ORDERED: IPRATROPIUM-Albuterol 0.5MG-2.5MG/3 ML NEB ONE (17:35)
[2024-08-27 17:55] LABS: BASO% 0.2 % (0-3); EOS% 0.5 % (0-8); HEMATOCRIT 38.8 % (37.0-47.0); IMMATURE GRANULOCYTES 0.4 % (0.0-5.0); LYMPH% 48.2 % (15-41); MEAN CELL VOLUME 93.5 fL CALC (80.0-100.0); MEAN CORPUSCULAR HGB 31.3 pG CALC (26.0-32.0); MEAN CORPUSCULAR HGB CONC 33.5 g/dL CAL (32.0-36.0); MONO% 3.9 % (2-13); NEUT# 5.11 thou/uL (2.00-7.15); NEUT% 46.8 % (42-76); RED BLOOD COUNT 4.15 mill/uL (4.20-5.60)
[2024-08-27 18:08] LABS: ALBUMIN 4.3 g/dL (3.2-5.0); CREATININE 0.6 mg/dL (0.5-1.0); TOTAL PROTEIN 7.1 g/dL (6.3-8.2)
[2024-08-27 18:17] LABS: BILIRUBIN, TOTAL 0.8 mg/dL (0.02-1.3)
[2024-08-27] MEDS ORDERED: cefTRIAXone SODIUM 2 GM in SODIUM CHLORIDE 0.9% 100 ML IV ONE (19:15)
[2024-08-27] MEDS ORDERED: INSULIN REGULAR (HUMAN) 100 UNIT/ML INJ IV ONE ×2 (19:15→20:15)
[2024-08-27] MEDS ORDERED: SODIUM CHLORIDE 0.9% 1,000 ML IV STA (19:40)
[2024-08-27] MEDS ORDERED: INSULIN GLARGINE 100 UNITS/ML SC ONE (20:20)
[2024-08-27] MEDS ORDERED: LANTUS SOL100 UNIT/M SC (20:23)
== END 2024-08-27 21:12 | disposition home or self-care (01) | DRG 918 ==
LOC: ED 17:17
PROVIDERS: Clinical Nurse Specialist Emergency
DX: T63.441A Toxic effect of venom of bees, accidental (unintentional), initial encounter (principal); R06.2 Wheezing; L50.0 Allergic urticaria; E11.65 Type 2 diabetes mellitus with hyperglycemia; I10 Essential (primary) hypertension; F31.9 Bipolar disorder, unspecified; F41.1 Generalized anxiety disorder; Z79.4 Long term (current) use of insulin; Z96.41 Presence of insulin pump (external) (internal); Z20.822 Contact with and (suspected) exposure to COVID-19
CPT/HCPCS: J0696; J1200; J1815

== ENCOUNTER 2024-09-08 19:41 | Emergency (ER) | payer OTHER ==
[~2024-09-08] VITALS: Ht 160 cm; Wt 80.0 kg
[~2024-09-08 19:41] MED LIST changes: +LANTUS SOL100 UNIT/M SC
[2024-09-08] MEDS ORDERED: DiphenhydrAMINE HCL 50 MG/ML SDV IV STA (19:50)
[2024-09-08] MEDS ORDERED: FAMOTIDINE 10MG/ML 2ML SDV IV STA (19:50)
[2024-09-08] MEDS ORDERED: SODIUM CHLORIDE 0.9% 1,000 ML IV STA (19:50)
[2024-09-08] MEDS ORDERED: methylPREDNISolone SODIUM SUCC 125 MG/2 ML SDV IV STA (19:50)
[2024-09-08] MEDS ORDERED: IPRATROPIUM-Albuterol 0.5MG-2.5MG/3 ML NEB ONE (19:55)
[2024-09-08 20:10] VITALS: BP 158/86
[2024-09-08] MEDS ORDERED: PROMETHAZINE HCL 25 MG/ML AMP IV ONE (20:15)
[2024-09-08 20:30] VITALS: BP 146/64
[2024-09-08] MEDS ORDERED: PROMETHAZINE HY25 M1 PO (20:47)
[2024-09-08] MEDS ORDERED: PROMETHAZINE HCL 25 MG/TAB PO ONE (20:50)
[2024-09-08] MEDS ORDERED: predniSONE 20 MG/TAB PO ONE (20:50)
[2024-09-08 21:00] VITALS: BP 132/60
[2024-09-08 21:09] VITALS: BP 132/60
== END 2024-09-08 21:09 | disposition home or self-care (01) | DRG 918 ==
LOC: ED 19:41
DX: T63.421A Toxic effect of venom of ants, accidental (unintentional), initial encounter (principal); I10 Essential (primary) hypertension; E11.9 Type 2 diabetes mellitus without complications; F31.9 Bipolar disorder, unspecified; F41.1 Generalized anxiety disorder; Z79.4 Long term (current) use of insulin
CPT/HCPCS: J1200; J2550

== ENCOUNTER 2024-09-22 06:28 | Emergency (ER) | payer OTHER ==
[~2024-09-22] VITALS: Ht 160 cm; Wt 113.0 kg
[~2024-09-22 06:28] MED LIST changes: +PROMETHAZINE HY25 M1 PO
[2024-09-22] MEDS ORDERED: methylPREDNISolone SODIUM SUCC 125 MG/2 ML SDV IV STA (06:38)
[2024-09-22] MEDS ORDERED: FAMOTIDINE 10MG/ML 2ML SDV IV STA (06:38)
[2024-09-22] MEDS ORDERED: DiphenhydrAMINE HCL 50 MG/ML SDV IV STA (06:38)
[2024-09-22] MEDS ORDERED: SODIUM CHLORIDE 0.9% 1,000 ML IV ONE (06:40)
[2024-09-22] MEDS ORDERED: METOCLOPRAMIDE HCL 10 MG/2 ML SDV IV ONE (07:30)
[2024-09-22 07:56] LABS: CREATININE 0.5 mg/dL (0.5-1.0); POTASSIUM 3.6 mmol/l (3.5-5.1)
[2024-09-22 08:00] VITALS: BP 140/74
[2024-09-22 08:31] VITALS: BP 138/69
[2024-09-22] MEDS ORDERED: EPIPEN 2-P0.3 MG/0.3 SC (08:54)
[2024-09-22 09:01] VITALS: BP 148/76
== END 2024-09-22 09:30 | disposition home or self-care (01) | DRG 916 ==
LOC: ED 06:28
PROVIDERS: Family Medicine
DX: T78.40XA Allergy, unspecified, initial encounter (principal); L29.9 Pruritus, unspecified; R06.00 Dyspnea, unspecified; R07.9 Chest pain, unspecified
CPT/HCPCS: J1200; J2765

== ENCOUNTER 2024-09-23 20:07 | Emergency (ER) | payer OTHER ==
[2024-09-23] VITALS (13 sets, daily range): BP systolic 114–169; BP diastolic 71–82
[~2024-09-23] VITALS: Ht 160 cm; Wt 81.0 kg
[2024-09-23] MEDS ORDERED: SODIUM CHLORIDE 0.9% 1,000 ML IV STA (20:26)
[2024-09-23] MEDS ORDERED: DiphenhydrAMINE HCL 50 MG/ML SDV IV STA (20:26)
[2024-09-23] MEDS ORDERED: methylPREDNISolone SODIUM SUCC 125 MG/2 ML SDV IV STA (20:26)
[2024-09-23] MEDS ORDERED: FAMOTIDINE 10MG/ML 2ML SDV IV STA (20:26)
[2024-09-23] MEDS ORDERED: LORazepam 2 MG/ML IV ONE (20:30)
== END 2024-09-23 23:28 | disposition home or self-care (01) | DRG 918 ==
LOC: ED 20:07
DX: T63.301A Toxic effect of unspecified spider venom, accidental (unintentional), initial encounter (principal); L53.0 Toxic erythema; I10 Essential (primary) hypertension; E11.9 Type 2 diabetes mellitus without complications; F41.1 Generalized anxiety disorder; F31.9 Bipolar disorder, unspecified; Z79.4 Long term (current) use of insulin
CPT/HCPCS: J1200; J2060